=== PATIENT | male | born 1945 | race Caucasian/White ===

== ENCOUNTER → 2016-07-11 | Outpatient (CLI) | payer MEDICARE, OTHER ==
--- NOTE | 2016-07-11 16:14 | XR ---
EXAMINATION TYPE: XR lumbosacral spine min 4V DATE OF EXAM: 07/11/2016 4:09 PM CLINICAL HISTORY: Chronic low back pain. TECHNIQUE: Frontal, lateral, and oblique images of the lumbar spine are obtained. COMPARISON: CT abdomen and pelvis July 21, 2015. FINDINGS: There are 5 lumbar type vertebral bodies identified. The lumbar spine shows satisfactory alignment without evidence of acute fracture or dislocation. Vertebral body heights and disk space he ights are within normal limits. Fairly mild to moderate multilevel anterior and lateral spurring is p resent. There is facet arthropathy lower lumbar levels. The oblique images appear within normal limi ts. Vascular calcification of overlying abdominal aorta is noted. IMPRESSION: Mild to moderate multilevel spurring redemonstrated.
== END ==
LOC: RADXRMAIN 15:43
PROVIDERS: ATTEND Internal Medicine
DX: M46.07 Spinal enthesopathy, lumbosacral region (principal)
CPT/HCPCS: 72110

== ENCOUNTER → 2018-09-18 | Outpatient (CLI) | payer MEDICARE, OTHER ==
--- NOTE | 2018-09-18 15:49 | US ---
EXAMINATION TYPE: US kidneys/renal and bladder DATE OF EXAM: 09/18/2018 COMPARISON: NONE CLINICAL HISTORY: L flank pain R10.9. EXAM MEASUREMENTS: Right Kidney: 11.1 x 5.3 x 5.8 cm Left Kidney: 11.3 x 5.7 x 5.1 cm Right Kidney: cyst noted measuring 1.9 x 1.7 x 1.9cm, echogenic foci seen inferior, possible stone vs calcified artery Left Kidney: cyst noted measuring 1.2 x 1.2 x 1.6cm, multiple echogenic foci noted, possible stones v s calcified arteries Bladder: wnl Bilateral Jets seen: yes There is no evidence for hydronephrosis at this point in time. No suspicious masses are identified. The urinary bladder is anechoic. Bilateral ureteral jets are seen. IMPRESSION: Bilateral renal cysts and small bilateral nonobstructing renal calculi versus renal arterial calcific ations. No hydronephrosis seen at this time.
== END | disposition home or self-care (01) ==
LOC: RADUSWWP 14:38
PROVIDERS: ATTEND Internal Medicine
DX: N28.1 Cyst of kidney, acquired (principal)
CPT/HCPCS: 76770

== ENCOUNTER 2019-10-17 08:22 | Day surgery (SDC) | payer MEDICARE, OTHER ==
[2019-10-14 15:08] VITALS: BMI 25.7
--- NOTE | 2019-10-17 07:43 | P.GSHP ---
History of Present Illness H&P Date: 10/17/19 CHIEF COMPLAINT: Colon screen HISTORY OF PRESENT ILLNESS: The patient is a 74-year-old male who presents for colon screen. Lower endoscopy was offered for further evaluation and management. PAST MEDICAL HISTORY: Please see list. PAST SURGICAL HISTORY: Please see list. MEDICATIONS: Please see list. ALLERGIES: Please see list. SOCIAL HISTORY: No illicit drug use FAMILY HISTORY: No reports of Crohn disease or ulcerative colitis. REVIEW OF ORGAN SYSTEMS: CONSTITUTIONAL: No reports of fevers or chills. PHYSICAL EXAM: VITAL SIGNS: Stable GENERAL: Well-developed pleasant in no acute distress. HEENT: No scleral icterus. Extraocular movements grossly intact. Moist buccal mucosa. NECK: Supple without lymphadenopathy. CHEST: Unlabored respirations. Equal bilateral excursions. CARDIOVASCULAR: Regular rate and rhythm. Distal 2+ pulses. ABDOMEN: Soft, nontender, nondistended. MUSCULOSKELETAL: No clubbing, cyanosis, or edema. ASSESSMENT: 1. Colon screen. PLAN: 1. Recommend proceeding with a lower endoscopy Past Medical History Past Medical History: Chest Pain / Angina, Hyperlipidemia, Hypertension, Thyroid Disorder Additional Past Medical History / Comment(s): kidney stones 2016 History of Any Multi-Drug Resistant Organisms: None Reported Past Surgical History: Hernia Repair, Orthopedic Surgery Additional Past Surgical History / Comment(s): CYST REMOVED FROM KNEE, THUMB SX Past Anesthesia/Blood Transfusion Reactions: Previous Problems w/ Anesthesia Additional Past Anesthesia/Blood Transfusion Reaction / Comment(s): STATES POST HERNIA SX WITH SPINAL TOOK LONG TIME TO WAKE UP, "has had blood pressure drop after anesthesia had to tilt table with head down to help" Smoking Status: Former smoker - Past Family History Brother(s) Family Medical History: Coronary Artery Disease (CAD) Mother Family Medical History: Coronary Artery Disease (CAD), Myocardial Infarction (MS) Father Family Medical History: Myocardial Infarction (MS) Medications and Allergies Home Medications Medication Instructions Recorded Confirmed Type Aspirin 325 mg PO QAM 09/10/14 10/14/19 History Atorvastatin [Lipitor] 40 mg PO HS 09/10/14 10/14/19 History Citalopram Hydrobromide [CeleXA] 10 mg PO QAM 09/10/14 10/14/19 History Isosorbide Mononitrate [Isosorbide 30 mg PO QAM 09/10/14 10/14/19 History Mononitrate ER] Levothyroxine Sodium [Synthroid] 100 mcg PO QAM 09/10/14 10/14/19 History Multivitamin [Men's Multi-Vitamin] 1 tab PO DAILY 09/10/14 10/14/19 History [place]-3 Fatty Acids/Fish Oil [Fish 1 tab PO DAILY 09/10/14 10/14/19 History Oil 1,000 mg Softgel] Anni's Wort 1 tab PO DAILY 09/10/14 10/14/19 History Baclofen 5 mg PO HS 10/14/19 10/14/19 History Allergies Allergy/AdvReac Type Severity Reaction Status Date / Time codeine AdvReac Nausea & Verified 10/14/19 14:57 Vomiting
[~2019-10-17 08:22] MED LIST: LACTATED RINGERS 1,000 ML IV SCH
[2019-10-17] MEDS ORDERED: PROPOFOL 10 MG/ML 20 ML VIAL IV ONE (08:57)
[2019-10-17] MEDS ORDERED: LACTATED RINGERS 1,000 ML IV ONE (08:57)
--- NOTE | 2019-10-17 09:25 | P.PCN ---
Date of Procedure: 10/17/19 Description of Procedure: PREOPERATIVE DIAGNOSIS: Personal history of colon polyps POSTOPERATIVE DIAGNOSIS: Personal history of colon polyps Colon lesion at sigmoid colon Sigmoid colon polyp Sigmoid diverticulosi OPERATION: Colonoscopy to the ileocecal valve and appendiceal orifice, cecum Colonoscopy with cold forceps biopsies SURGEON: Courtney Hawkins MD. ANESTHESIA: MAC. INDICATIONS: The patient is a 74-year-old male who presents personal history of colon polyps. Last colonoscopy 5 years. Benefits and risks were described and informed consent was obtained. DESCRIPTION OF PROCEDURE: The patient had undergone Suprep. He had been brought into the operating room and laid in the left lateral decubitus position. After adequate intravenous sedation, the rectum was examined with 2% lidocaine jelly. The prostate was unremarkable. No external hemorrhoids were encountered. The rectal tone was within normal limits. No lesions were palpated in the rectal vault. An Olympus colonoscope was advanced until the cecum, ileocecal valve and appendiceal orifice were clearly viewed. The prep was excellent. Sigmoid diverticulosis was encountered. Colonic polyps were found and removed with cold forceps. No evidence of focal colitis was found. Retroflexion of the scope demonstrated grade 1 internal hemorrhoids without active bleeding or inflammation. The colon was desufflated. The patient had tolerated the procedure well. Withdrawal time was over 6 minutes. FINDINGS: Aronchick preparation quality scale 1 (1-5) No internal hemorrhoids No external hemorrhoids No arteriovenous malformations. Sigmoid diverticulosis Melanosis coli, mild Removal of 1 polyp and lesion: - Cold forceps biopsy at 30 cm from the anal verge, 6 mm flat lesion. - Cold forceps biopsy at 20 cm from the anal verge, 3 mm polyp. No focal colitis. RECOMMENDATIONS: Repeat colonoscopy 3 years, 2022. Plan - Discharge Summary Discharge Rx Participant: No New Discharge Prescriptions: Continue [place]'s Wort 1 tab PO DAILY [place]-3 Fatty Acids/Fish Oil [Fish Oil 1,000 mg Softgel] 1 tab PO DAILY Multivitamin [Men's Multi-Vitamin] 1 tab PO DAILY Levothyroxine Sodium [Synthroid] 100 mcg PO QAM Isosorbide Mononitrate [Isosorbide Mononitrate ER] 30 mg PO QAM Citalopram Hydrobromide [CeleXA] 10 mg PO QAM Atorvastatin [Lipitor] 40 mg PO HS Aspirin 325 mg PO QAM Baclofen 5 mg PO HS Discharge Medication List Aspirin 325 mg PO QAM 09/10/14 [History] Atorvastatin [Lipitor] 40 mg PO HS 09/10/14 [History] Citalopram Hydrobromide [CeleXA] 10 mg PO QAM 09/10/14 [History] Isosorbide Mononitrate [Isosorbide Mononitrate ER] 30 mg PO QAM 09/10/14 [History] Levothyroxine Sodium [Synthroid] 100 mcg PO QAM 09/10/14 [History] Multivitamin [Men's Multi-Vitamin] 1 tab PO DAILY 09/10/14 [History] [place]-3 Fatty Acids/Fish Oil [Fish Oil 1,000 mg Softgel] 1 tab PO DAILY 09/10/14 [History] [place]'s Wort 1 tab PO DAILY 09/10/14 [History] Baclofen 5 mg PO HS 10/14/19 [History] Follow up Appointment(s)/Referral(s): Courtney Hawkins MD [STAFF PHYSICIAN] - As Needed Patient Instructions/Handouts: Colorectal Polyps (IP), Diverticulosis Diet (GEN), Diverticulosis (DC) Activity/Diet/Wound Care/Special Instructions: Repeat colonoscopy in 3 years, 2022 or Cologuard Discharge Disposition: HOME SELF-CARE
[2019-10-18 08:10] VITALS: BP 116/71; PULSE 79; RESP 16; TEMP 97
== END 2019-10-17 10:05 | disposition home or self-care (01) ==
LOC: ORWHC2ENDO 08:22
PROVIDERS: ATTEND Surgery Plastic and Reconstructive Surgery
DX: Z12.11 Encounter for screening for malignant neoplasm of colon (principal); D12.6 Benign neoplasm of colon, unspecified; K63.89 Other specified diseases of intestine; K64.0 First degree hemorrhoids; Z86.010 Personal history of colon polyps; I10 Essential (primary) hypertension; E78.5 Hyperlipidemia, unspecified; E03.9 Hypothyroidism, unspecified; Z87.442 Personal history of urinary calculi; Z87.891 Personal history of nicotine dependence; Z88.5 Allergy status to narcotic agent; Z79.82 Long term (current) use of aspirin; Z79.890 Hormone replacement therapy; Z79.899 Other long term (current) drug therapy; Z98.890 Other specified postprocedural states; Z82.49 Family history of ischemic heart disease and other diseases of the circulatory system
CPT/HCPCS: 88305; 45380; J2704

== ENCOUNTER 2020-02-05 15:18 | Emergency (ER) | payer MEDICARE, OTHER ==
[2020-02-05 15:31] VITALS: RESP 18
[2020-02-05] MEDS ORDERED: SODIUM CHLORIDE 0.9% 1,000 ML IV ONE (16:28)
[2020-02-05] MEDS ORDERED: ONDANSETRON 4 MG/2 ML VIAL IVP STA (16:28)
--- NOTE | 2020-02-05 17:25 | XR ---
EXAMINATION TYPE: XR chest 1V portable DATE OF EXAM: 02/05/2020 COMPARISON: 10/10/2014 HISTORY: Chest pain TECHNIQUE: FINDINGS: There is no heart failure nor confluent pneumonic infiltrate. Costophrenic angles are clear . Bony thorax is intact. IMPRESSION: No active cardiopulmonary disease. Normal heart. No change.
[2020-02-05 17:34] LABS: Basophils % (A) 1 %; Eosinophils % (A) 1 %; HCT 43.5 % (39.0-53.0); HGB 14.8 gm/dL (13.0-17.5); Lymphocytes # (A) 1.6 k/uL (1.0-4.8); Lymphocytes % (A) 32 %; MCH 31.7 pg (25.0-35.0); MCHC 33.9 g/dL (31.0-37.0); MCV 93.4 fL (80.0-100.0); Monocytes # (A) 0.4 k/uL (0-1.0); Monocytes % (A) 8 %; Neutrophils # (A) 2.9 k/uL (1.3-7.7); Neutrophils % (A) 56 %; Platelet Count 177 k/uL (150-450); RBC 4.65 m/uL (4.30-5.90); RDW 12.2 % (11.5-15.5); WBC 5.1 k/uL (3.8-10.6)
[2020-02-05 17:47] LABS: ALT 28 U/L (4-49); AST 31 U/L (17-59); African American GFR (CKD) >90 (>60 ml/min/1.73 sqM); Albumin 3.6 g/dL (3.5-5.0); Alkaline Phosphatase 62 U/L (38-126); Anion Gap 6 mmol/L; Blood Urea Nitrogen 18 mg/dL (9-20); C Reactive Protein <5.0 mg/L (<10.0); Calcium 8.9 mg/dL (8.4-10.2); Carbon Dioxide 26 mmol/L (22-30); Chloride 105 mmol/L (98-107); Glucose 98 mg/dL (74-99); LDH 282 U/L (313-618); Magnesium 1.7 mg/dL (1.6-2.3); Non-African American GFR(CKD) >90 (>60 ml/min/1.73 sqM); Potassium 3.9 mmol/L (3.5-5.1); Sodium 137 mmol/L (137-145); Total Bilirubin 0.5 mg/dL (0.2-1.3); Total Protein 6.1 g/dL (6.3-8.2)
--- NOTE | 2020-02-05 17:58 | ED ---
General Adult HPI - General Source: patient, RN notes reviewed, old records reviewed Mode of arrival: ambulatory Limitations: no limitations <Megha Jacob - Last Filed: 02/06/20 08:17> <Stephanie James - Last Filed: 02/06/20 10:50> - General Chief complaint: Recheck/Abnormal Lab/Rx Stated complaint: COVID+ Symptoms getting worse Time Seen by Provider: 02/05/20 16:03 - History of Present Illness Initial comments: Patient is a 74-year-old male presents emergency department today for evaluation for complaints of nausea and body aches and diarrhea. He was diagnosed with covid 19 infection on Monday. He reports that his here with his seems to be in worse condition. Patient denies any cough or shortness of breath. (Megha Jacob) - Related Data Home Medications Medication Instructions Recorded Confirmed Citalopram Hydrobromide [CeleXA] 10 mg PO DAILY 09/10/14 02/05/20 Isosorbide Mononitrate [Isosorbide 30 mg PO DAILY 09/10/14 02/05/20 Mononitrate ER] Levothyroxine Sodium [Synthroid] 100 mcg PO DAILY 09/10/14 02/05/20 Multivitamin [Men's Multi-Vitamin] 1 tab PO DAILY 09/10/14 02/05/20 Anni's Wort 150 mg PO DAILY 09/10/14 02/05/20 Baclofen 5 mg PO HS 10/14/19 02/05/20 Ascorbic Acid [Vitamin C] 1,000 mg PO DAILY 02/05/20 02/05/20 Aspirin EC [Ecotrin] 325 mg PO DAILY 02/05/20 02/05/20 Azithromycin [Zithromax] 500 mg PO DAILY 02/05/20 02/05/20 L.acidoph,Paracasei, B.lactis 1 cap PO DAILY 02/05/20 02/05/20 [Probiotic] Pantoprazole Sodium [Protonix] 40 mg PO DAILY 02/05/20 02/05/20 Pravastatin Sodium [Pravachol] 40 mg PO DAILY 02/05/20 02/05/20 Previous Rx's Medication Instructions Recorded Ondansetron Odt [Zofran Odt] 4 mg PO Q12HR PRN #12 tab 02/05/20 Allergies Allergy/AdvReac Type Severity Reaction Status Date / Time codeine AdvReac Nausea & Verified 02/05/20 17:20 Vomiting Review of Systems ROS Other: All systems not noted in ROS Statement are negative. <Megha Jacob - Last Filed: 02/06/20 08:17> ROS Other: All systems not noted in ROS Statement are negative. <DiegoStephanie franco Radha - Last Filed: 02/06/20 10:50> ROS Statement: Those systems with pertinent positive or pertinent negative responses have been documented in the HPI. Past Medical History Past Medical History: Chest Pain / Angina, Hyperlipidemia, Hypertension, Thyroid Disorder Additional Past Medical History / Comment(s): kidney stones 2016 History of Any Multi-Drug Resistant Organisms: None Reported Past Surgical History: Hernia Repair, Orthopedic Surgery Additional Past Surgical History / Comment(s): CYST REMOVED FROM KNEE, THUMB SX Past Anesthesia/Blood Transfusion Reactions: Previous Problems w/ Anesthesia Additional Past Anesthesia/Blood Transfusion Reaction / Comment(s): STATES POST HERNIA SX WITH SPINAL TOOK LONG TIME TO WAKE UP, "has had blood pressure drop after anesthesia had to tilt table with head down to help" Past Psychological History: Anxiety, Depression Smoking Status: Current some day smoker Past Alcohol Use History: Occasional Past Drug Use History: Marijuana - Past Family History Brother(s) Family Medical History: Coronary Artery Disease (CAD) Mother Family Medical History: Coronary Artery Disease (CAD), Myocardial Infarction (DE) Father Family Medical History: Myocardial Infarction (DE) <Megha Jacob - Last Filed: 02/06/20 08:17> General Exam Limitations: no limitations General appearance: alert, in no apparent distress Head exam: Present: atraumatic, normocephalic, normal inspection Eye exam: Present: normal appearance, PERRL, EOMI. Absent: scleral icterus, conjunctival injection, periorbital swelling ENT exam: Present: normal exam, mucous membranes moist Neck exam: Present: normal inspection. Absent: tenderness, meningismus, lymphadenopathy Respiratory exam: Present: normal lung sounds bilaterally. Absent: respiratory distress, wheezes, rales, rhonchi, stridor Cardiovascular Exam: Present: regular rate, normal rhythm, normal heart sounds. Absent: systolic murmur, diastolic murmur, rubs, gallop, clicks GI/Abdominal exam: Present: soft, normal bowel sounds. Absent: distended, tenderness, guarding, rebound, rigid <TcrhiannaMegha - Last Filed: 02/06/20 08:17> - General Exam Comments Initial Comments: 74-year-old male. Alert and oriented 3. No distress (CecilMegha) Course Vital Signs 02/05/20 02/05/20 02/05/20 15:28 16:30 18:00 Temperature 98.7 F 97.3 F L Pulse Rate 82 72 91 Respiratory 18 18 18 Rate Blood Pressure 103/66 134/65 144/80 O2 Sat by Pulse 98 99 98 Oximetry Medical Decision Making - Lab Data Result diagrams: 02/05/20 17:25 02/05/20 17:25 <Megha Jacob - Last Filed: 02/06/20 08:17> - Lab Data Result diagrams: 02/05/20 17:25 02/05/20 17:25 <Stephanie James - Last Filed: 02/06/20 10:50> - Medical Decision Making 74-year-old male presents emergency department today for evaluation for her nausea symptoms accompanied 19 infection. He is here with his . The same Patient is given IV fluids and Zofran he reports improvement of his nausea. Labs reviewed and unremarkable. Chest x-ray is normal. Vital signs are stable. Discussed Patient will be wanted to be discharged home and to self quarantine for 14 days. (Megha Jacob) I was available for consultation in the emergency department. The history and physical exam were done by the midlevel provider. I was consulted for this patients care. I reviewed the case with the midlevel provider and based on their presentation of the patient, I agree with the assessment, medical decision making and plan of care as documented. Chart was dictated using [employer] dictation software. Attempts were made to correct any dictation errors however some typographical errors may persist. Patient was seen during a national state of emergency due to the Covid-19 pandemic. (Stephanie James) - Lab Data Lab Results 02/05/20 02/05/20 02/05/20 Range/Units 17:25 17:25 17:25 WBC 5.1 (3.8-10.6) k/uL RBC 4.65 (4.30-5.90) m/uL Hgb 14.8 (13.0-17.5) gm/dL Hct 43.5 (39.0-53.0) % MCV 93.4 (80.0-100.0) fL MCH 31.7 (25.0-35.0) pg MCHC 33.9 (31.0-37.0) g/dL RDW 12.2 (11.5-15.5) % Plt Count 177 (150-450) k/uL Neutrophils % 56 % Lymphocytes % 32 % Monocytes % 8 % Eosinophils % 1 % Basophils % 1 % Neutrophils # 2.9 (1.3-7.7) k/uL Lymphocytes # 1.6 (1.0-4.8) k/uL Monocytes # 0.4 (0-1.0) k/uL Eosinophils # 0.0 (0-0.7) k/uL Basophils # 0.0 (0-0.2) k/uL PT 9.9 (9.0-12.0) sec INR 0.9 (<1.2) APTT 22.3 (22.0-30.0) sec D-Dimer 0.35 (<0.60) mg/L FEU Sodium 137 (137-145) mmol/L Potassium 3.9 (3.5-5.1) mmol/L Chloride 105 (98-107) mmol/L Carbon Dioxide 26 (22-30) mmol/L Anion Gap 6 mmol/L BUN 18 (9-20) mg/dL Creatinine 0.79 (0.66-1.25) mg/dL Est GFR (CKD-EPI)AfAm >90 (>60 ml/min/1.73 sqM) Est GFR (CKD-EPI)NonAf >90 (>60 ml/min/1.73 sqM) Glucose 98 (74-99) mg/dL Plasma Lactic Acid Chacho (0.7-2.0) mmol/L Calcium 8.9 (8.4-10.2) mg/dL Magnesium 1.7 (1.6-2.3) mg/dL Ferritin 185.9 (22.0-322.0) ng/mL Total Bilirubin 0.5 (0.2-1.3) mg/dL AST 31 (17-59) U/L ALT 28 (4-49) U/L Alkaline Phosphatase 62 (38-126) U/L Lactate Dehydrogenase 282 L (313-618) U/L C-Reactive Protein <5.0 (<10.0) mg/L Total Protein 6.1 L (6.3-8.2) g/dL Albumin 3.6 (3.5-5.0) g/dL Procalcitonin (0.02-0.09) ng/mL 02/05/20 02/05/20 Range/Units 17:25 17:25 WBC (3.8-10.6) k/uL RBC (4.30-5.90) m/uL Hgb (13.0-17.5) gm/dL Hct (39.0-53.0) % MCV (80.0-100.0) fL MCH (25.0-35.0) pg MCHC (31.0-37.0) g/dL RDW (11.5-15.5) % Plt Count (150-450) k/uL Neutrophils % % Lymphocytes % % Monocytes % % Eosinophils % % Basophils % % Neutrophils # (1.3-7.7) k/uL Lymphocytes # (1.0-4.8) k/uL Monocytes # (0-1.0) k/uL Eosinophils # (0-0.7) k/uL Basophils # (0-0.2) k/uL PT (9.0-12.0) sec INR (<1.2) APTT (22.0-30.0) sec D-Dimer (<0.60) mg/L FEU Sodium (137-145) mmol/L Potassium (3.5-5.1) mmol/L Chloride (98-107) mmol/L Carbon Dioxide (22-30) mmol/L Anion Gap mmol/L BUN (9-20) mg/dL Creatinine (0.66-1.25) mg/dL Est GFR (CKD-EPI)AfAm (>60 ml/min/1.73 sqM) Est GFR (CKD-EPI)NonAf (>60 ml/min/1.73 sqM) Glucose (74-99) mg/dL Plasma Lactic Acid Chacho 0.7 (0.7-2.0) mmol/L Calcium (8.4-10.2) mg/dL Magnesium (1.6-2.3) mg/dL Ferritin (22.0-322.0) ng/mL Total Bilirubin (0.2-1.3) mg/dL AST (17-59) U/L ALT (4-49) U/L Alkaline Phosphatase (38-126) U/L Lactate Dehydrogenase (313-618) U/L C-Reactive Protein (<10.0) mg/L Total Protein (6.3-8.2) g/dL Albumin (3.5-5.0) g/dL Procalcitonin 0.04 (0.02-0.09) ng/mL Disposition Is patient prescribed a controlled substance at d/c from ED?: No <Megha Jacob - Last Filed: 02/06/20 08:17> <Stephanie James - Last Filed: 02/06/20 10:50> Clinical Impression: COVID-19, Nausea, Diarrhea Disposition: HOME SELF-CARE Condition: Good Instructions (If sedation given, give patient instructions): Acute Nausea and Vomiting (ED) Additional Instructions: Please use medication as discussed. Please follow up with family doctor if symptoms have not improved over the next two days. Please return to the emergency room if your symptoms increase or worsen or for any other concerns. Coronavirus (COVID-19) Discharge Instructions Handout File: Download File Attachment Here Coronavirus (COVID-19) Discharge Instructions You were diagnosed with the novel Coronavirus, known as COVID-19. It is a viral illness that can cause fever, cough and trouble breathing. Some people may have chills, muscle aches, runny nose, sneezing, sore throat, upset stomach or loose stool. When leaving [facility], you will be asked to wear a mask. You should wear it until you get home. When do I need to call the doctor? ?Call your doctor if your breathing is getting worse (harder or faster than before or you feel like you are getting less air). ?Some people start to feel worse in the second week of their illness, if you start to feel worse at any time in your illness, please call your doctor, who will tell you where to go to be seen. ?If you can, put on a facemask before leaving home or before you enter the clinic or hospital. Get medical attention right away if you develop emergency warning signs of COVID-19 such as: trouble breathing, chest pain or pressure that does not go away, new confusion or not able to wake up, bluish lips or face. Precautions at home The virus is spread easily through tiny droplets when you cough or sneeze. You should take these steps to help prevent the disease from spreading to people in your home and community 1. Self-isolate at home As advised by the Centers for Disease Control and Prevention (CDC), we ask you to stay in your home and limit contact with others to avoid spreading this virus. Stay home except to go to the doctor ?Do not go to work, school, or public areas, except for getting medical care. ?Avoid using public transportation (such as buses), ride-sharing, or taxis. ?If you have an upcoming doctor appointment, call the office and tell them that you have COVID-19. Separate yourself from other people and animals in your home. ?Avoid touching other people, including handshaking. ?As much as you can, stay in a specific room and away from other people in your home. ?You should also use a separate bathroom, if available. ?Avoid sharing personal household items. ?You should not share dishes, drinking glasses, cups, eating utensils, towels, toothpaste, or bedding with other people or pets in your home. ?After using these items, they should be washed well with soap and water. ?Do not handle pets or other animals while sick. 2. Clean and disinfect Clean all high-touch surfaces every day. ?High-touch surfaces include counters, tabletops, doorknobs, bathroom fixtures, toilets, phones, keyboards, tablets, and bedside tables. ?Clean any surfaces that may have blood, stool, or body fluids on them. Use a household cleaning spray or wipe, according to the label instructions. ?Labels contain instructions for safe and effective use of the cleaning product including precautions you should take when applying the product, such as wearing gloves and making sure you have good air flow in the room during use of the product. Wash laundry. ?Remove and wash clothes or bedding that have blood, stool, or body fluids on them and then wash your hands right away 3. Help stop the spread Clean your hands often. ?Wash your hands with soap and water for at least 20 seconds. OR ?Use an alcohol-based hand signal operator linguist that contains at least 60% alcohol, covering all surfaces of your hands and rubbing them together until they feel dry. ?Wash your hands after blowing your nose, coughing, or sneezing; going to the bathroom, and before eating or preparing food. ?Avoid touching your eyes, nose, and mouth with unwashed hands. Cover your coughs and sneezes. ?Cover your mouth and nose with a tissue when you cough or sneeze. ?Throw used tissues in a lined trash can; clean your hands right away. Wear a facemask ?You should wear a facemask when you are around other people (e.g., sharing a room or vehicle) or pets and before you enter a healthcare providers office. 4. Notify your close contacts ?People that you live with should self-isolate for 14 days AFTER your self-isolation period ends. ?Other close contacts such as caretakers and intimate partners should self- isolate for 14 days AFTER your last contact with them. ?Your close contacts should self-monitor for symptoms by checking their temperature twice a day and watching for fever, cough, or shortness of breath. They should contact their doctor if they develop symptoms of COVID-19. ?They should also clean hands often and avoid touching eyes, nose, and mouth with unwashed hands. ?They should wear a mask if they have to be in the same room as you if you are not able to wear one. When can I stop precautions at home? Your doctor will tell you which criteria to follow below (Symptom-based criteria) You can stop isolating yourself when both of these things have happened: ?You have had no fever for at least 24 hours (that is one full day of no fever without the use of medicine that reduces fevers) AND ?Other symptoms have improved (for example, when your cough or shortness of breath have improved) AND ?At least 10 days have passed since your symptoms first started. OR (Time-based criteria) You can stop isolating yourself when both of these things have happened: ?You never develop symptoms of COVID19 AND ?At least 10 days have passed since your first started positive test OR (Extended Symptom-based criteria for severe illness) You can stop isolating yourself when both of these things have happened: ?You have had no fever for at least 24 hours (that is one full day of no fever without the use of medicine that reduces fevers) AND ?Other symptoms have improved (for example, when your cough or shortness of breath have improved) AND At least 20 days have passed since your symptoms first started. (Extended Time-based criteria for severe immunocompromised) You can stop isolating yourself when both of these things have happened: ?You never develop symptoms of COVID19 AND ?At least 20 days have passed since your first positive test OR (Test-based criteria) You can stop isolating yourself when both of these things have happened: You have had no fever for at least 24 hours (that is one full day of no fever without the use of medicine that reduces fevers) AND Other symptoms have improved (for example, when your cough or shortness of breath have improved) AND You have two negative repeat tests for COVID19 Manage your stress and anxiety ?Being ill can be stressful or cause anxiety. Remember that everyone reacts differently to stressful situations. ?Being ill with COVID-19 might be especially stressful because it is a new disease and there is a lot of news coverage. Take breaks from watching, reading, or listening to news stories, including social media. ?People with preexisting mental conditions should continue their treatment and be aware of new or worsening symptoms. ?If you, or someone you care about, are feeling overwhelmed with emotions like sadness, depression, or anxiety, call the Substance Abuse and Mental Health Services Administrations ([facility]) Disaster Distress Helpline: [place] [address]. (TTY ) For more information: ?CDC Coronavirus Website https://www.cdc.gov/coronavirus/2019-ncov/index.html ?CDC Coronavirus Frequently asked question - https:// www.cdc.gov/coronavirus/2019-ncov/faq.html Prescriptions: Ondansetron Odt [Zofran Odt] 4 mg PO Q12HR PRN #12 tab PRN Reason: Nausea Referrals: Rohan Carter MD [Primary Care Provider] - 1-2 days
[2020-02-05 18:02] LABS: D-Dimer 0.35 mg/L FEU (<0.60); INR 0.9 (<1.2); Partial Thromboplastin Time 22.3 sec (22.0-30.0); Prothrombin Time 9.9 sec (9.0-12.0)
[2020-02-05 19:32] VITALS: BP 144/80; PULSE 91; TEMP 97.3
[2020-02-06 01:36] LABS: Ferritin 185.9 ng/mL (22.0-322.0)
== END 2020-02-05 18:45 | disposition home or self-care (01) ==
LOC: EC 15:18
DX: U07.1 COVID-19 (principal); E78.5 Hyperlipidemia, unspecified; I10 Essential (primary) hypertension; E07.9 Disorder of thyroid, unspecified; F41.9 Anxiety disorder, unspecified; F32.9 Major depressive disorder, single episode, unspecified; F17.200 Nicotine dependence, unspecified, uncomplicated; Z79.890 Hormone replacement therapy; Z79.82 Long term (current) use of aspirin; Z79.899 Other long term (current) drug therapy; Z88.5 Allergy status to narcotic agent
CPT/HCPCS: 36415; 93005; 85379; 80053; 82728; 83605; 83615; 83735; 85025; 85610; 85730; 86140; 87040; 84145; 71045; 99284; 96374; 96361; J2405

== ENCOUNTER → 2020-10-20 | Outpatient (CLI) | payer MEDICARE ==
--- NOTE | 2020-10-20 18:37 | ECHOF ---
Referral Reason:I34.0 Nonrheumatic mitral valve insufficiency MEASUREMENTS -------- HEIGHT: 182.9 cm WEIGHT: 90.7 kg BP: IVSd: 1.3 cm (0.6 - 1.1) LVIDd: 4.5 cm (3.9 - 5.3) LVPWd: 1.5 cm (0.6 - 1.1) EDV(Teich): 91 ml IVSs: 1.4 cm LVIDs: 2.4 cm LVPWs: 1.7 cm %IVS Thck: 4 % ESV(Teich): 20 ml EF(Teich): 77 % %FS: 46 % SV(Teich): 70 ml RVIDd: 3.6 cm (< 3.3) RA Diam: 4.4 cm LALs A4C: 5.4 cm LAAs A4C: 19.2 cm LAESV A-L A4C: 58 ml LAESV MOD A4C: 52 ml LALs A2C: 5.5 cm LAAs A2C: 19.3 cm LAESV A-L A2C: 58 ml LAESV MOD A2C: 54 ml LAESV(A-L): 59 ml LAESV Index (A-L): 27.54 ml/m Ao Diam: 3.8 cm (2.0 - 3.7) AV Cusp: 2.3 cm (1.5 - 2.6) EPSS: 0.9 cm MV E Joshua: 0.65 m/s MV DecT: 213 ms MV Dec [place]: 3.0 m/s MV A Joshua: 0.51 m/s MV E/A Ratio: 1.26 MV PHT: 62 ms LVOT Vmax: 0.92 m/s LVOT maxP.38 mmHg AV Vmax: 0.96 m/s AV maxP.68 mmHg TR Vmax: 1.81 m/s TR maxP.06 mmHg RAP: 5.00 mmHg RVSP: 18.06 mmHg MV EF SLOPE: 118.48 mm/s (70 - 150) MV EXCURSION: 23.38 mm (> 18.000) FINDINGS -------- Sinus rhythm. This was a technically adequate study. The left ventricular size is normal. There is mild concentric left ventricular hypertrophy. Overa ll left ventricular systolic function is normal with, an EF between 55 - 60 %. The diastolic fillin g pattern is normal for the age of the patient 10.41. The right ventricle is mildly enlarged. Normal LA size by volume 22+/-6 ml/m2. The right atrium is mildly enlarged. Interatrial and interventricular septum intact. There is no evidence of aortic regurgitation. There is no evidence of aortic stenosis. Mild mitral regurgitation is present. Mild tricuspid regurgitation present. There is no evidence of pulmonary hypertension. The right v entricular systolic pressure, as measured by Doppler, is 18.06mmHg. There is no pulmonic regurgitation present. The aortic root size is normal. IVC Not well visulized. There is no pericardial effusion. CONCLUSIONS -------- 1. The left ventricular size is normal. 2. There is mild concentric left ventricular hypertrophy. 3. Overall left ventricular systolic function is normal with, an EF between 55 - 60 %. 4. The right ventricle is mildly enlarged. 5. The right atrium is mildly enlarged. 6. Mild mitral regurgitation is present. 7. Mild tricuspid regurgitation present. HELP DESK MANAGER: Faith Nava [facility]
--- NOTE | 2020-10-21 07:16 | US ---
EXAMINATION TYPE: US carotid duplex BILAT DATE OF EXAM: 10/20/2020 COMPARISON: NONE CLINICAL HISTORY: I34.0 Nonrheumatic mitral valve insufficiency. Pt states transient vision changes w ith dizziness EXAM MEASUREMENTS: RIGHT: Peak Systolic Velocity (PSV) cm/sec ----- Right CCA: 69.4 ----- Right ICA: 70.3 ----- Right ECA: 96.3 ICA/CCA ratio: 1.0 RIGHT: End Diastole cm/sec ----- Right CCA: 11.9 ----- Right ICA: 19.7 ----- Right ECA: 0.0 LEFT: Peak Systolic Velocity (PSV) cm/sec ----- Left CCA: 87.8 ----- Left ICA: 60.9 ----- Left ECA: 91.9 ICA/CCA ratio: 0.7 LEFT: End Diastole cm/sec ----- Left CCA: 14.4 ----- Left ICA: 18.9 ----- Left ECA: 0.0 VERTEBRALS (direction of flow): Right Vertebral: Antegrade Left Vertebral: Antegrade Rhythm: Normal No significant stenosis seen IMPRESSION: No sonographic evidence for hemodynamically significant stenosis of the bilateral carotid arteries. Criteria for Assigning % of Stenosis / Diameter reduction (Estimation based on the indirect measurements of the internal carotid artery velocities (ICA PSV). 1. Normal (no stenosis)=ICA PSV < 125 cm/s: ratio < 2.0: ICA EDV<40 cm/s. 2. Less than 50% stenosis=ICA PSV < 125 cm/s: ratio < 2.0: ICA EDV<40 cm/s. 3. 50 to 69% stenosis=ICA PSV of 125 to 230 cm/s: ration 2.0 ? 4.0: ICA EDV 40-100 cm/s. 4. Greater than 70% stenosis to near occlusion= ICA PSV > 230 cm/s: ratio > 4.0: ICA EDV > 100 cm/s. 5. Near occlusion= ICA PSV velocities may be low or undetectable: variable ratio and ICA EDV. 6. Total occlusion=unable to detect flow.
== END | disposition home or self-care (01) ==
LOC: RADUSWWP 15:28
PROVIDERS: ATTEND Internal Medicine
DX: I08.1 Rheumatic disorders of both mitral and tricuspid valves (principal); I34.0 Nonrheumatic mitral (valve) insufficiency; I65.29 Occlusion and stenosis of unspecified carotid artery
CPT/HCPCS: 93306; 93880